=== PATIENT | male | born 1960 | race Caucasian/White ===

== ENCOUNTER 2017-11-07 16:13 | Emergency (ER) | payer SELFPAY ==
[~2017-11-07] VITALS: Ht 193 cm; Wt 96.0 kg
[~2017-11-07 16:13] MED LIST: LISI-366 PO; NUCY150T PO; NUCYNTA
[2017-11-07 16:14] VITALS: BP 101/75; PULSE 119; RESP 20; TEMP 98.8; O2SAT 98
[2017-11-07 16:22] VITALS: PULSE 100
--- NOTE | 2017-11-07 16:30 | PD ---
HPI Chief Complaint: Medication Refill Request Time Seen by Provider: 16:28 Travel History International Travel<30 days: No Contact w/Intl Traveler<30days: No Traveled to known affect area: No History of Present Illness HPI 57-year-old male presents requesting a refill of his hydrocodone. He reports that he has prescribed hydrocodone for "chronic degenerative pain." He reports that he has run out and his primary care physician is currently in the hospital and thus he presents here requesting refill. Symptoms are mild, aggravated by lack of his pain medication. Denies any acute injury. He has no other complaints at this time. History Past Medical Histgory Hx Cancer: No Social History Alcohol Use: Yes (WAS AN ALCOHOLIC AT ONE TIME, STOPPED ABRUBTLY AND HAD ASIMILIAR EVENT.) Tobacco Use: Yes (/2 PPD) Allergies-Medications (Allergen,Severity, Reaction): Coded Allergies: No Known Allergies (Verified , 03/25/16) Reported Meds & Prescriptions Reported Meds & Active Scripts Active Reported Nucynta Er (Tapentadol Hcl) 150 Mg Tab 150 Mg PO Lisinopril 40 mg (Lisinopril) 40 Mg Tab 1 Tab PO DAILY [Nucynta] Review of Systems General / Constitutional: No: Fever, Chills Musculoskeletal: Positive: Pain Skin: No Rash Physical Exam Narrative GENERAL: Older developed well-nourished male in no acute distress SKIN: Warm and dry. HEAD: Atraumatic. Normocephalic. EYES: Pupils equal and round. No scleral icterus. No injection or drainage. ENT: No nasal bleeding or discharge. Mucous membranes pink and moist. NECK: Trachea midline. No JVD. CARDIOVASCULAR: Regular rate and rhythm. No murmur appreciated. RESPIRATORY: No accessory muscle use. Clear to auscultation. Breath sounds equal bilaterally. MUSCULOSKELETAL: No obvious deformities. No clubbing. No cyanosis. No edema. NEUROLOGICAL: Awake and alert. No obvious cranial nerve deficits. Motor grossly within normal limits. Normal speech. Data Data Last Documented VS Vital Signs Date Time Temp Pulse Resp B/P (MAP) Pulse Ox O2 Delivery O2 Flow Rate FiO2 11/07/17 16:22 100 2 16:14 98.8 20 101/75 (84) 98 Room Air [facility] Medical Screen Exam Complete: Yes Emergency Medical Condition: No Narrative Course A medical screening exam was performed: At the time of evaluation the presenting medical condition was determined not to be of an emergent nature. The patient was given the option of receiving additional care, but declined. Patient was given options for additional community resources from which to obtain care. The Patient Has Been advised to seek medical attention for their presenting complaint. The patient has been advised to return to the ER at any time if an emergent condition develops. Primary Impression: Encounter for medical screening examination Jonathon Springer Nov 07, 2017 16:30
== END 2017-11-07 16:37 | disposition left against medical advice (07) ==
LOC: NEPK 16:13
DX: Z76.0 Encounter for issue of repeat prescription (principal)
CPT/HCPCS: 99281